=== PATIENT | female | born 1995 | race Caucasian/White ===

== ENCOUNTER 2016-03-23 00:52 | Emergency (ER) | payer SELFPAY ==
[~2016-03-23] VITALS: Ht 152.4 cm; Wt 55.0 kg
[2016-03-23 00:55] VITALS: Ht 152.4 cm; Wt 55.0 kg
[2016-03-23] MEDS ORDERED: BACTDS PO (04:54)
[2016-03-23] MEDS ORDERED: CEPH-443 PO (04:55)
[2016-03-23] MEDS ORDERED: METHYLPREDNISOLONE 125 MG INJ IM ONE (05:00)
[2016-03-23] MEDS ORDERED: PRED20TA PO (05:01)
[2016-03-23] MEDS ORDERED: BEN25 PO (05:01)
[2016-03-23 05:24] VITALS: BP 118/70; PULSE 70; RESP 18; TEMP 98
--- NOTE | 2016-03-24 16:24 | ERD ---
ER Documentation Chief Complaint Date/Time DATE: 03/24/16 TIME: 16:20 Chief Complaint rash/bites bilateral lower extremities x 3 days, pain 7/10 HPI This patient is a 20-year-old female with no significant medical history presenting to the emergency department for bilateral lower extremity rash which has been ongoing for the past 5 days. The patient states she was exposed to bedbugs at her friend's house approximately 1 week ago. Additionally she reports flulike symptoms for the past 3 weeks. The patient denies any fevers, chills, nausea, vomiting, diarrhea, significant swelling around the area, or other symptoms at this time. ROS All systems reviewed and are negative except as per history of present illness. Medications Home Meds Active Scripts Diphenhydramine Hcl* (Benadryl*) 25 Mg Cap, 25 MG PO Q6, #20 CAP Prov:NIA ANGELA PA-C 03/23/16 Prednisone* (Prednisone*) 20 Mg Tab, 40 MG PO DAILY for 5 Days, #10 TAB Prov:NIA ANGELA PA-C 03/23/16 Cephalexin* (Keflex*) 500 Mg Capsule, 500 MG PO QID for 7 Days, #14 CAP Prov:NIA ANGELA PA-C 03/23/16 Sulfamethoxazole-Trimethoprim* (Bactrim* DS) 800-160 Mg Tab, 1 TAB PO BID for 7 Days, #14 TAB Prov:NIA ANGELA PA-C 03/23/16 PMhx/Soc Medical and Surgical Hx: pt denies Medical Hx, pt denies Surgical Hx Hx Alcohol Use: No Hx Substance Use: No Hx Tobacco Use: No FmHx Noncontributory for chief complaint Physical Exam Vitals Vital Signs Date Time Temp Pulse Resp B/P Pulse Ox O2 Delivery O2 Flow Rate FiO2 03/23/16 05:24 98.0 70 18 118/70 99 Room Air 03/23/16 00:55 97.5 59 17 132/63 99 Physical Exam INITIAL VITAL SIGNS: Reviewed by me. GENERAL: Alert and interactive. No acute distress. HEAD: Head is normocephalic and atraumatic. EYES: EOMI. No scleral icterus. No conjunctival injection. ENT: Moist mucosa. NECK: Supple. Full range of motion. RESPIRATORY: Normal respiratory effort. Clear breath sounds bilaterally. No wheezing, rales, or rhonchi. CV: Regular rate and rhythm. Normal S1 S2. No S3 or S4. No murmurs. ABDOMEN: Soft, non-distended, non-tender. No guarding. No rebound. No masses. EXTREMITIES: No deformity. SKIN: There is a vesicular, macular papular rash with one bullae present to bilateral lower extremities. The rash is mostly localized to the bilateral ankle area. NEUROLOGIC: Alert and oriented x 4. Speech is normal. Moves all extremities equally. No motor or sensory deficits noted. Results 24 hrs Current Medications Medications (Trade) Dose Ordered Sig/Radha Route PRN Reason Start Time Stop Time Status Last Admin Dose Admin Methylprednisolone Sodium Succinate (Solu-Medrol) 125 mg ONCE ONCE IM 03/23/16 05:00 03/23/16 05:25 DC 03/23/16 05:24 Procedures/MDM 20-year-old female presents secondary to complaints of rash to bilateral lower extremities ongoing for the past 5 days. On physical examination patient's vital signs are within normal limits. There is a macular papular rash to bilateral lower extremities with the vesicle present on the left anterior ankle. I believe the rash is secondary to the bedbugs and there is some cellulitis present to bilateral lower extremities. Given the patient's stable vital signs and physical examination for a mild case of cellulitis I believe she is a candidate for outpatient management with a prescription for Keflex, Bactrim, prednisone, and Benadryl. I doubt significant cellulitis or cellulitic lymphatic streaking requiring any admission at this time. The patient understands the diagnosis and plan she was advised to return to the emergency department immediately for any new or worsening symptoms. She understands information. All questions and concerns were addressed and the patient was hemodynamically stable prior to discharge. Departure Diagnosis: Primary Impression: Rash and other nonspecific skin eruption Condition: Fair Patient Instructions: Self-Care for Skin Rashes Referrals: COMMUNITY CLINICS YOU HAVE RECEIVED A MEDICAL SCREENING EXAM AND THE RESULTS INDICATE THAT YOU DO NOT HAVE A CONDITION THAT REQUIRES URGENT TREATMENT IN THE EMERGENCY DEPARTMENT. FURTHER EVALUATION AND TREATMENT OF YOUR CONDITION CAN WAIT UNTIL YOU ARE SEEN IN YOUR DOCTORS OFFICE WITHIN THE NEXT 1-2 DAYS. IT IS YOUR RESPONSIBILITY TO MAKE AN APPOINTMENT FOR FOLOW-UP CARE. IF YOU HAVE A PRIMARY DOCTOR --you should call your primary doctor and schedule an appointment IF YOU DO NOT HAVE A PRIMARY DOCTOR YOU CAN CALL OUR PHYSICIAN REFERRAL HOTLINE AT IF YOU CAN NOT AFFORD TO SEE A PHYSICIAN YOU CAN CHOSE FROM THE FOLLOWING [facility] [id number] [facility] [address] [facility] [address] [facility] [address] [facility] [address] [facility]. [facility]. [address] Additional Instructions: Return in 48 hours for wound recheck. Return sooner if there are any fevers, discharge, or other worsening symptoms. Follow-up with your primary care physician within 1 week. Return to the emergency department immediately should you have any new or worsening symptoms, uncontrolled fevers, or other unexplained symptoms. Take all medications as directed. NIA ANGELA PA-C Mar 24, 2016 16:23
== END 2016-03-23 05:25 | disposition home or self-care (01) ==
LOC: FTE 00:52
DX: R21 Rash and other nonspecific skin eruption (principal)
CPT/HCPCS: 96372; 99284; J2930